=== PATIENT | male | born 1995 | race African-American/Black ===

== ENCOUNTER 2021-09-28 07:12 | Emergency (ER) | payer OTHER ==
[~2021-09-28] VITALS: Ht 160 cm; Wt 55.8 kg
[2021-09-28 08:29] LABS: BASO % 0.8 % (0.0-1.0); EOS # 0.1 10^3/uL (0.0-0.5); EOS % 1.1 % (0.0-3.0); HEMATOCRIT 43.6 % (42.0-52.0); HEMOGLOBIN 14.2 g/dl (13.5-17.5); LYMPH # 2.1 10^3/uL (1.5-5.0); LYMPH % 39.4 % (24.0-44.0); MEAN CORPUSCULAR HEMOGLOBIN 30.5 pg (27.0-33.0); MEAN CORPUSCULAR HGB CONC 32.6 g/dl (32.0-36.5); MEAN CORPUSCULAR VOLUME 93.8 fl (80.0-96.0); MONO # 0.5 10^3/uL (0.0-0.8); MONO % 9.3 % (2.0-8.0); NEUTROPHILS # 2.6 10^3/uL (1.5-8.5); PLATELET COUNT, AUTOMATED 235 10^3/uL (150-450); RED BLOOD COUNT 4.65 10^6/uL (4.30-6.10); WHITE BLOOD COUNT 5.3 10^3/uL (4.0-10.0)
[2021-09-28 08:47] LABS: ERYTHROCYTE SEDIMENTATION RATE 1 mm/hr (0-15)
[2021-09-28 09:32] LABS: BLOOD UREA NITROGEN 11 MG/DL (7-18); CARBON DIOXIDE LEVEL 31 MEQ/L (21-32); CHLORIDE LEVEL 106 MEQ/L (98-107); CREATININE FOR GFR 0.88 MG/DL (0.70-1.30); GLOMERULAR FILTRATION RATE > 60.0 (>60); GLUCOSE, FASTING 78 MG/DL (70-100); POTASSIUM SERUM 4.2 MEQ/L (3.5-5.1); SODIUM LEVEL 139 MEQ/L (136-145)
[2021-09-28 09:33] LABS: CALCIUM LEVEL 9.7 MG/DL (8.5-10.1); FREE THYROXINE INDEX 2.7 % (1.4-3.8); T UPTAKE 38 % (33-40); THYROXINE (T4) 7.1 UG/DL (4.5-12.0)
[2021-09-28 10:12] VITALS: BP 122/77
== END 2021-09-28 10:23 | disposition home or self-care (01) ==
LOC: M ED 07:12
DX: R68.83 Chills (without fever) (principal); R94.6 Abnormal results of thyroid function studies; M79.10 Myalgia, unspecified site

== ENCOUNTER 2022-01-31 06:50 | Emergency (ER) | payer OTHER ==
[~2022-01-31] VITALS: Ht 160 cm; Wt 56.3 kg
[2022-01-31 08:50] LABS: BASO # 0.1 10^3/uL (0.0-0.2); EOS # 0.1 10^3/uL (0.0-0.5); EOS % 1.2 % (0.0-3.0); HEMATOCRIT 44.5 % (42.0-52.0); HEMOGLOBIN 14.4 g/dl (13.5-17.5); LYMPH # 2.2 10^3/uL (1.5-5.0); MEAN CORPUSCULAR HEMOGLOBIN 30.5 pg (27.0-33.0); MEAN CORPUSCULAR HGB CONC 32.4 g/dl (32.0-36.5); MEAN CORPUSCULAR VOLUME 94.3 fl (80.0-96.0); MONO # 0.6 10^3/uL (0.0-0.8); MONO % 11.4 % (2.0-8.0); NEUTROPHILS # 2.2 10^3/uL (1.5-8.5); NEUTROPHILS % 43.2 % (36.0-66.0); PLATELET COUNT, AUTOMATED 252 10^3/uL (150-450); RED BLOOD COUNT 4.72 10^6/uL (4.30-6.10); WHITE BLOOD COUNT 5.2 10^3/uL (4.0-10.0)
[2022-01-31 09:28] LABS: CK-MB VALUE MASS 2.2 NG/ML (<3.6); MB/CK RELATIVE INDEX 0.28 (< OR =4)
[2022-01-31] MEDS ORDERED: NS 1,000 ML IV ONE (09:30)
[2022-01-31 09:42] LABS: BLOOD UREA NITROGEN 9 MG/DL (7-18); CALCIUM LEVEL 9.2 MG/DL (8.5-10.1); CARBON DIOXIDE LEVEL 27 MEQ/L (21-32); CHLORIDE LEVEL 106 MEQ/L (98-107); CREATININE FOR GFR 1.01 MG/DL (0.70-1.30); FREE T4 1.01 NG/DL (0.76-1.46); GLOMERULAR FILTRATION RATE > 60.0 (>60); GLUCOSE, FASTING 79 MG/DL (70-100); POTASSIUM SERUM 4.3 MEQ/L (3.5-5.1); SODIUM LEVEL 138 MEQ/L (136-145); THYROID STIMULATING HORMONE 0.655 uIU/ML (0.358-3.740)
[2022-01-31 10:19] LABS: CK-MB VALUE MASS 2.2 NG/ML (<3.6); MB/CK RELATIVE INDEX 0.29 (< OR =4)
[2022-01-31 11:02] VITALS: BP 131/88
== END 2022-01-31 11:30 | disposition home or self-care (01) ==
LOC: M ED 06:50
DX: R07.9 Chest pain, unspecified (principal); R00.1 Bradycardia, unspecified; F17.200 Nicotine dependence, unspecified, uncomplicated

== ENCOUNTER → 2022-03-31 | Outpatient (CLI) | payer OTHER | LOC: M CARPUL 13:00 | PROVIDERS: ATTEND Internal Medicine Cardiovascular Disease | DX: R07.2 Precordial pain (principal) ==

== ENCOUNTER → 2022-04-06 | Outpatient (CLI) | payer OTHER ==
[~2022-04-06] MED LIST: ISOVUE-370 76% 100ML VIAL As Ordered ONE
== END ==
LOC: M RAD 08:22
PROVIDERS: ATTEND Internal Medicine Cardiovascular Disease
DX: R07.2 Precordial pain (principal)
CPT/HCPCS: 71275; Q9967

== ENCOUNTER → 2022-09-27 | Outpatient (CLI) | payer OTHER ==
[2022-09-27 15:33] LABS: C REACTIVE PROTEIN QUANTITATIV < 0.40 MG/DL (<1.0)
[2022-09-27 15:36] LABS: TOTAL 25(OH) VITAMIN D 14.7 NG/ML (20.0-100.0)
== END ==
LOC: M LAB 14:21
PROVIDERS: ATTEND Internal Medicine Critical Care Medicine
DX: R07.9 Chest pain, unspecified (principal)

== ENCOUNTER → 2022-09-27 | Outpatient (CLI) | payer OTHER | LOC: M RAD 09:32 | PROVIDERS: ATTEND Internal Medicine Critical Care Medicine | DX: S22.21XA Fracture of manubrium, initial encounter for closed fracture (principal) | CPT/HCPCS: 36415; 78315; 82306; 85652; 86140; A9503 ==

== ENCOUNTER 2022-10-09 13:44 | Emergency (ER) | payer OTHER ==
[~2022-10-09] VITALS: Ht 160 cm; Wt 54.1 kg
[2022-10-09 15:22] LABS: BASO # 0.1 10^3/uL (0.0-0.2); BASO % 1.3 % (0.0-1.0); EOS # 0.1 10^3/uL (0.0-0.5); EOS % 1.4 % (0.0-3.0); HEMATOCRIT 41.2 % (42.0-52.0); HEMOGLOBIN 13.4 g/dl (13.5-17.5); LYMPH # 2.7 10^3/uL (1.5-5.0); LYMPH % 48.4 % (24.0-44.0); MEAN CORPUSCULAR HGB CONC 32.5 g/dl (32.0-36.5); MEAN CORPUSCULAR VOLUME 92.2 fl (80.0-96.0); MONO # 0.6 10^3/uL (0.0-0.8); NEUTROPHILS # 2.2 10^3/uL (1.5-8.5); NEUTROPHILS % 38.7 % (36.0-66.0); PLATELET COUNT, AUTOMATED 267 10^3/uL (150-450); RED BLOOD COUNT 4.47 10^6/uL (4.30-6.10); WHITE BLOOD COUNT 5.6 10^3/uL (4.0-10.0)
[2022-10-09 15:36] LABS: BLOOD UREA NITROGEN 13 MG/DL (9-23); CALCIUM LEVEL 9.1 MG/DL (8.5-10.1); CARBON DIOXIDE LEVEL 30 MMOL/L (20-31); CHLORIDE LEVEL 102 MMOL/L (98-107); CK-MB VALUE MASS < 1.0 NG/ML (<3.6); CPK CREATINE PHOSPHOKINASE 144 U/L (46-171); GLOMERULAR FILTRATION RATE > 60.0 (>60); GLUCOSE, FASTING 80 MG/DL (60-100); MB/CK RELATIVE INDEX 0.69 (< OR =4); POTASSIUM SERUM 3.9 MMOL/L (3.5-5.1); SODIUM LEVEL 135 MMOL/L (136-145)
[2022-10-09 18:01] LABS: CK-MB VALUE MASS < 1.0 NG/ML (<3.6); CPK CREATINE PHOSPHOKINASE 168 U/L (46-171); MB/CK RELATIVE INDEX 0.59 (< OR =4)
[2022-10-09 18:12] LABS: RSV AMPLIFICATION NEGATIVE (NEGATIVE)
[2022-10-09] MEDS ORDERED: IBUP-1022 PO (19:35)
[2022-10-09 19:55] VITALS: BP 154/91
== END 2022-10-09 19:58 | disposition home or self-care (01) ==
LOC: M ED 13:44
DX: R07.9 Chest pain, unspecified (principal); R00.1 Bradycardia, unspecified; Z79.1 Long term (current) use of non-steroidal anti-inflammatories (NSAID)

== ENCOUNTER → 2022-10-26 | Outpatient (CLI) | payer OTHER ==
[~2022-10-26] MED LIST changes: +IBUP-1022 PO; -ISOVUE-370 76% 100ML VIAL As Ordered ONE
== END ==
LOC: M EKG 11:01
PROVIDERS: ATTEND Internal Medicine Critical Care Medicine
DX: R07.9 Chest pain, unspecified (principal)

== ENCOUNTER → 2022-12-19 | Outpatient (CLI) | payer OTHER | LOC: M PLAIMG 09:05 | PROVIDERS: ATTEND Physician Assistant | DX: R07.2 Precordial pain (principal) ==

== ENCOUNTER 2023-01-02 09:11 | Emergency (ER) | payer OTHER ==
[~2023-01-02] VITALS: Ht 160 cm; Wt 51.6 kg
[2023-01-02 09:12] VITALS: BP 128/90; TEMP 98; O2SAT 100
[2023-01-02] MEDS ORDERED: METH4PACK (09:21)
[2023-01-02] MEDS ORDERED: HYDR-643 (09:21)
[2023-01-02] MEDS ORDERED: FLUT1BLS3 (09:21)
[2023-01-02] MEDS ORDERED: METH-1164 (09:21)
== END 2023-01-02 10:59 | disposition left against medical advice (07) ==
LOC: M ED 09:11
DX: Z53.21 Procedure and treatment not carried out due to patient leaving prior to being seen by health care provider (principal)

== ENCOUNTER 2023-01-02 12:51 | Emergency (ER) | payer OTHER ==
[~2023-01-02] VITALS: Ht 157.5 cm; Wt 50.6 kg
[2023-01-02 12:51] VITALS: BP 135/89; TEMP 97.8; O2SAT 100
[~2023-01-02 12:51] MED LIST changes: +FLUT1BLS3; +HYDR-643; +METH-1164; +METH4PACK
== END 2023-01-02 16:48 | disposition left against medical advice (07) ==
LOC: M ED 12:51
DX: Z53.21 Procedure and treatment not carried out due to patient leaving prior to being seen by health care provider (principal)

== ENCOUNTER 2023-04-07 02:54 | Emergency (ER) | payer OTHER ==
[~2023-04-07] VITALS: Ht 167.6 cm; Wt 62.0 kg
[2023-04-07] MEDS ORDERED: LORazepam 2 MG/ML 1ML VIAL IM STA (03:01)
[2023-04-07] MEDS ORDERED: HALOPERIDOL 5MG/ML 1ML VIAL IM ONE (03:05)
[2023-04-07] MEDS ORDERED: diphenhydrAMINE 50MG/ML VIAL IM ONE (03:05)
[2023-04-07 03:44] LABS: HEMATOCRIT 42.8 % (42.0-52.0); HEMOGLOBIN 13.4 g/dl (13.5-17.5); MEAN CORPUSCULAR HGB CONC 31.3 g/dl (32.0-36.5); MEAN CORPUSCULAR VOLUME 95.7 fl (80.0-96.0); PLATELET COUNT, AUTOMATED 284 10^3/uL (150-450); RED BLOOD COUNT 4.47 10^6/uL (4.30-6.10)
[2023-04-07] MEDS ORDERED: NS 1,000 ML IV ONE ×3 (04:10→07:05)
[2023-04-07 04:58] LABS: ALBUMIN 4.6 G/DL (3.2-5.2); ALKALINE PHOSPHATASE 59 U/L (46-116); ALT/SGPT 21 U/L (7.0-40); AST/SGOT 25 U/L (<34); BILIRUBIN,DIRECT < 0.1 MG/DL (<0.4); BILIRUBIN,TOTAL 0.2 MG/DL (0.3-1.2); BLOOD UREA NITROGEN 11 MG/DL (9-23); CARBON DIOXIDE LEVEL < 10.0 MMOL/L (20-31); CHLORIDE LEVEL 113 MMOL/L (98-107); CREATININE FOR GFR 0.92 MG/DL (0.70-1.30); ETHYL ALCOHOL (ETHANOL) 0.264 % (0.000-0.010); GLOMERULAR FILTRATION RATE > 60.0 (>60); GLUCOSE, FASTING 145 MG/DL (60-100); POTASSIUM SERUM 4.5 MMOL/L (3.5-5.1); SALICYLATE LEVEL < 3.0 MG/DL (<30); SODIUM LEVEL 149 MMOL/L (136-145); THYROID STIMULATING HORMONE 1.423 uIU/ML (0.55-4.78); TOTAL PROTEIN 8.1 G/DL (5.7-8.2)
[2023-04-07] MEDS ORDERED: ISOVUE-370 76% 100ML VIAL As Ordered ONE (05:00)
[2023-04-07] MEDS ORDERED: LIDOCAINE 2% 5ML JELLY UROJET TOP ONE (07:05)
[2023-04-07 07:40] LABS: ABG BASE EXCESS -5.1 (-2.0-2.0); ABG HCO3 20.9 MMOL/L (22.0-26.0); ABG O2 SATURATION 98.2 % (95.0-99.0); ABG PARTIAL PRESSURE CO2 42.3 mmHg (35.0-45.0); ABG PARTIAL PRESSURE O2 124.8 mmHg (75.0-100.0); ABG STANDARD HCO3 20.3 MMOL/L. (22.0-26.0); ABG TOTAL CO2 22.2 MMOL/L (22.0-29.0); ABG pH (ARTERIAL) 7.311 UNITS (7.350-7.450)
[2023-04-07] MEDS ORDERED: diphenhydrAMINE 50MG/ML VIAL IV STA (07:56)
[2023-04-07 08:12] LABS: BLOOD UREA NITROGEN 8 MG/DL (9-23); CALCIUM LEVEL 7.3 MG/DL (8.5-10.1); CARBON DIOXIDE LEVEL 25 MMOL/L (20-31); CHLORIDE LEVEL 116 MMOL/L (98-107); CREATININE FOR GFR 0.78 MG/DL (0.70-1.30); GLOMERULAR FILTRATION RATE > 60.0 (>60); GLUCOSE, FASTING 87 MG/DL (60-100); SODIUM LEVEL 148 MMOL/L (136-145)
[2023-04-07 10:26] LABS: AMPHETAMINES LEVEL URINE NEGATIVE (NEGATIVE); BARBITURATES URINE NEGATIVE (NEGATIVE); BENZODIAZEPINES URINE NEGATIVE (NEGATIVE); CANNABINOIDS URINE NEGATIVE (NEGATIVE); COCAINE METABOLITE URINE NEGATIVE (NEGATIVE); METHADONE URINE NEGATIVE (NEGATIVE); OPIATES URINE NEGATIVE (NEGATIVE); PHENCYCLIDINE URINE NEGATIVE (NEGATIVE)
[2023-04-07 13:58] VITALS: BP 145/90; TEMP 98.2; O2SAT 100
== END 2023-04-07 14:01 | disposition home or self-care (01) ==
LOC: M ED 02:54
DX: F10.129 Alcohol abuse with intoxication, unspecified (principal); V49.00XA Driver injured in collision with unspecified motor vehicles in nontraffic accident, initial encounter; Z79.52 Long term (current) use of systemic steroids; Z79.1 Long term (current) use of non-steroidal anti-inflammatories (NSAID); Z79.899 Other long term (current) drug therapy
CPT/HCPCS: 36600; 70450; 71260; 72125; 72170; 74176; 80047; 80048; 80076; 80143; 80307; 82077; 82803; 83605; 84443; 85027; 86850; 86900; 86901; 87635; 96361; 96372; 99285; J1200; J1630; J2060; Q9967

== ENCOUNTER 2023-04-09 16:32 | Inpatient (IN) | payer OTHER ==
[~2023-04-09] VITALS: Ht 160 cm; Wt 52.3 kg
[2023-04-09] MEDS ORDERED: DIVA1TAB48 PO (17:14)
[2023-04-09] MEDS ORDERED: MIRT1TAB (17:14)
[2023-04-09] MEDS ORDERED: DULO1CAP4 (17:14)
[2023-04-09 18:09] LABS: HEMATOCRIT 38.3 % (42.0-52.0); HEMOGLOBIN 12.7 g/dl (13.5-17.5); MEAN CORPUSCULAR HEMOGLOBIN 30.3 pg (27.0-33.0); MEAN CORPUSCULAR HGB CONC 33.2 g/dl (32.0-36.5); MEAN CORPUSCULAR VOLUME 91.4 fl (80.0-96.0); PLATELET COUNT, AUTOMATED 253 10^3/uL (150-450); RED BLOOD COUNT 4.19 10^6/uL (4.30-6.10); WHITE BLOOD COUNT 4.5 10^3/uL (4.0-10.0)
[2023-04-09 18:39] LABS: ETHYL ALCOHOL (ETHANOL) < 0.003 % (0.000-0.010)
[2023-04-09 18:40] LABS: SALICYLATE LEVEL < 3.0 MG/DL (<30)
[2023-04-09 18:42] LABS: THYROID STIMULATING HORMONE 0.822 uIU/ML (0.55-4.78)
[2023-04-09 18:49] LABS: AMPHETAMINES LEVEL URINE NEGATIVE (NEGATIVE); BARBITURATES URINE NEGATIVE (NEGATIVE); BENZODIAZEPINES URINE NEGATIVE (NEGATIVE); CANNABINOIDS URINE NEGATIVE (NEGATIVE); COCAINE METABOLITE URINE NEGATIVE (NEGATIVE); METHADONE URINE NEGATIVE (NEGATIVE); OPIATES URINE NEGATIVE (NEGATIVE); PHENCYCLIDINE URINE NEGATIVE (NEGATIVE)
[2023-04-09 18:51] LABS: ALKALINE PHOSPHATASE 55 U/L (46-116); ALT/SGPT 26 U/L (7.0-40); AST/SGOT 46 U/L (<34); BILIRUBIN,DIRECT 0.2 MG/DL (<0.4); BILIRUBIN,TOTAL 0.4 MG/DL (0.3-1.2); BLOOD UREA NITROGEN 7 MG/DL (9-23); CARBON DIOXIDE LEVEL 28 MMOL/L (20-31); CHLORIDE LEVEL 106 MMOL/L (98-107); CREATININE FOR GFR 0.73 MG/DL (0.70-1.30); GLOMERULAR FILTRATION RATE > 60.0 (>60); GLUCOSE, FASTING 92 MG/DL (60-100); POTASSIUM SERUM 4.2 MMOL/L (3.5-5.1); SODIUM LEVEL 141 MMOL/L (136-145); TOTAL PROTEIN 7.3 G/DL (5.7-8.2)
[2023-04-09] MEDS ORDERED: traZODone 50 MG TAB PO PRN (20:50)
[2023-04-09] MEDS ORDERED: MOM 30ML SUSPENSION UDC PO PRN (20:50)
[2023-04-09] MEDS ORDERED: MAALOX 30 ML SUSP *UDC PO PRN (20:50)
[2023-04-09] MEDS ORDERED: ACETAMINOPHEN TAB 650MG DOSE (2X325MG) PO PRN (20:50)
[2023-04-09] MEDS ORDERED: ALBU8.5H INH (21:30)
[2023-04-09] MEDS ORDERED: HOME MED LIST COMPLETE! XX SCH (21:30)
[2023-04-09] MEDS ORDERED: HYDR-3363 PO (21:30)
[2023-04-09] MEDS ORDERED: DULO1CAP4 PO (21:30)
[2023-04-09] MEDS ORDERED: IBUP1TAB6 PO (21:30)
[2023-04-09] MEDS ORDERED: SYMB16INH INH (21:30)
[2023-04-09] MEDS ORDERED: MIRT1TAB PO (21:30)
[2023-04-09 23:35] VITALS: BP 152/90; TEMP 97.7; O2SAT 96
[2023-04-10 06:37] VITALS: BP 132/74; TEMP 98.4; O2SAT 98
[2023-04-10] MEDS ORDERED: ALBUTEROL 90 MCG/ACT 8GM HFA INHALER INH PRN (10:00)
[2023-04-10] MEDS: SYMBICORT 160/4.5MCG INHALER 6GM INH SCH ×2 (10:20→20:44)
[2023-04-10] MEDS: DULoxetine 30MG CAPSULE (CYMBALTA) PO SCH (10:20)
[2023-04-10 16:20] VITALS: BP 137/85; TEMP 99; O2SAT 99
[2023-04-10] MEDS: MIRTAZAPINE 7.5MG PER 1/2 TABLET PO SCH (20:44)
[2023-04-10] MEDS: ARIPiprazole 2 MG TAB PO SCH (20:44)
[2023-04-11 06:18] VITALS: BP 132/69; TEMP 97.6; O2SAT 98
[2023-04-11 06:46] LABS: CHOLESTEROL RISK RATIO 2.76 (<5); HDL CHOLESTEROL 57.1 MG/DL (>40); LDL CHOLESTEROL 90.3 MG/DL (<100); NON-HDL-C 100.9 MG/DL
[2023-04-11] MEDS: SYMBICORT 160/4.5MCG INHALER 6GM INH SCH ×2 (09:16→20:22)
[2023-04-11] MEDS: DULoxetine 30MG CAPSULE (CYMBALTA) PO SCH (09:16)
[2023-04-11 17:55] VITALS: BP 136/91; TEMP 98.8; O2SAT 99
[2023-04-11] MEDS: ARIPiprazole 2 MG TAB PO SCH (20:22)
[2023-04-11] MEDS: MIRTAZAPINE 7.5MG PER 1/2 TABLET PO SCH (20:22)
[2023-04-12 06:50] VITALS: BP 107/64; TEMP 98.5; O2SAT 99
[2023-04-12] MEDS: DULoxetine 30MG CAPSULE (CYMBALTA) PO SCH (08:51)
[2023-04-12] MEDS: SYMBICORT 160/4.5MCG INHALER 6GM INH SCH ×2 (08:51→20:14)
[2023-04-12] MEDS: IBUPROFEN 400MG TAB PO PRN (12:20)
[2023-04-12 18:26] VITALS: BP 139/95; TEMP 98.2; O2SAT 100
[2023-04-12] MEDS: MIRTAZAPINE 7.5MG PER 1/2 TABLET PO SCH (20:14)
[2023-04-12] MEDS: ARIPiprazole 2 MG TAB PO SCH (20:14)
[2023-04-13 06:31] VITALS: BP 136/81; TEMP 99.1; O2SAT 100
[2023-04-13] MEDS: SYMBICORT 160/4.5MCG INHALER 6GM INH SCH ×2 (07:58→20:06)
[2023-04-13] MEDS: DULoxetine 30MG CAPSULE (CYMBALTA) PO SCH (08:00)
[2023-04-13] MEDS ORDERED: VITAMIN D 50,000 UNITS CAPSULE (ERGOCALCIFEROL 1.25MG) PO SCH (09:00)
[2023-04-13 17:40] VITALS: BP 133/89; TEMP 98; O2SAT 100
[2023-04-13] MEDS: ARIPiprazole 2 MG TAB PO SCH (20:06)
[2023-04-13] MEDS: MIRTAZAPINE 7.5MG PER 1/2 TABLET PO SCH (20:06)
[2023-04-14 06:32] VITALS: BP 122/74; TEMP 98.9; O2SAT 100
[2023-04-14] MEDS: DULoxetine 30MG CAPSULE (CYMBALTA) PO SCH (09:14)
[2023-04-14] MEDS: SYMBICORT 160/4.5MCG INHALER 6GM INH SCH ×2 (09:14→20:28)
[2023-04-14] MEDS: IBUPROFEN 400MG TAB PO PRN (09:15)
[2023-04-14 18:14] VITALS: BP 144/82; TEMP 98.1; O2SAT 100
[2023-04-14] MEDS: MIRTAZAPINE 7.5MG PER 1/2 TABLET PO SCH (20:29)
[2023-04-14] MEDS: ARIPiprazole 2 MG TAB PO SCH (20:29)
[2023-04-15 06:41] VITALS: BP 107/60; TEMP 98.5; O2SAT 98
[2023-04-15] MEDS: SYMBICORT 160/4.5MCG INHALER 6GM INH SCH ×2 (07:43→20:12)
[2023-04-15] MEDS: DULoxetine 30MG CAPSULE (CYMBALTA) PO SCH (09:45)
[2023-04-15] MEDS: diphenhydrAMINE 25MG CAP PO PRN (13:03)
[2023-04-15 18:19] VITALS: BP 147/97; TEMP 98.7; O2SAT 100
[2023-04-15 18:26] VITALS: BP 132/92
[2023-04-15] MEDS: ARIPiprazole 2 MG TAB PO SCH (20:11)
[2023-04-15] MEDS: MIRTAZAPINE 7.5MG PER 1/2 TABLET PO SCH (20:12)
[2023-04-16 06:27] VITALS: BP 136/90; TEMP 98.8; O2SAT 99
[2023-04-16] MEDS: DULoxetine 30MG CAPSULE (CYMBALTA) PO SCH (09:13)
[2023-04-16] MEDS: SYMBICORT 160/4.5MCG INHALER 6GM INH SCH ×2 (09:13→20:14)
[2023-04-16] MEDS: diphenhydrAMINE 25MG CAP PO PRN (11:13)
[2023-04-16 18:31] VITALS: BP 136/85; TEMP 98.4; O2SAT 100
[2023-04-16] MEDS: MIRTAZAPINE 7.5MG PER 1/2 TABLET PO SCH (20:14)
[2023-04-16] MEDS: ARIPiprazole 2 MG TAB PO SCH (20:14)
[2023-04-17 06:47] VITALS: BP 142/87; TEMP 98.8; O2SAT 99
[2023-04-17] MEDS: SYMBICORT 160/4.5MCG INHALER 6GM INH SCH (08:26)
[2023-04-17] MEDS: DULoxetine 30MG CAPSULE (CYMBALTA) PO SCH (08:27)
[2023-04-17] MEDS ORDERED: TRAZ-252 PO (10:13)
[2023-04-17] MEDS ORDERED: DULO1CAP6 PO (10:13)
[2023-04-17] MEDS ORDERED: MIRT1TAB PO (10:13)
[2023-04-17] MEDS ORDERED: ABIL1TAB13 PO (10:13)
[2023-04-17] MEDS ORDERED: DIPH-435 PO (10:13)
== END 2023-04-17 12:00 | disposition home or self-care (01) | DRG 885 ==
LOC: M ED 16:32 → M ED INP 20:50 → M PSY 23:02
PROVIDERS: ADMIT Student in an Organized Health Care Education/Training Program; ATTEND Student in an Organized Health Care Education/Training Program
DX: F33.1 Major depressive disorder, recurrent, moderate (principal); R45.851 Suicidal ideations; F10.90 Alcohol use, unspecified, uncomplicated; J45.909 Unspecified asthma, uncomplicated; R07.89 Other chest pain; G47.00 Insomnia, unspecified; Z79.899 Other long term (current) drug therapy; Z20.822 Contact with and (suspected) exposure to COVID-19

== ENCOUNTER 2023-08-29 14:40 | Emergency (ER) | payer OTHER ==
[~2023-08-29] VITALS: Ht 160 cm; Wt 54.5 kg
[~2023-08-29 14:40] MED LIST changes: +ABIL1TAB13 PO; +ALBU8.5H INH; +DIPH-435 PO; +DIVA1TAB48 PO; +DULO1CAP4; +DULO1CAP4 PO; +DULO1CAP6 PO; +HYDR-3363 PO; +IBUP1TAB6 PO; +MIRT1TAB; +MIRT1TAB PO; +SYMB16INH INH; +TRAZ-252 PO
[2023-08-29 18:07] LABS: BASO % 0.6 % (0.0-1.0); EOS % 0.3 % (0.0-3.0); HEMATOCRIT 44.5 % (42.0-52.0); HEMOGLOBIN 14.5 g/dl (13.5-17.5); LYMPH # 1.4 10^3/uL (1.5-5.0); LYMPH % 21.9 % (24.0-44.0); MEAN CORPUSCULAR HEMOGLOBIN 30.1 pg (27.0-33.0); MEAN CORPUSCULAR HGB CONC 32.6 g/dl (32.0-36.5); MEAN CORPUSCULAR VOLUME 92.3 fl (80.0-96.0); MONO # 0.2 10^3/uL (0.0-0.8); MONO % 3.7 % (2.0-8.0); NEUTROPHILS # 4.8 10^3/uL (1.5-8.5); NEUTROPHILS % 73.3 % (36.0-66.0); PLATELET COUNT, AUTOMATED 274 10^3/uL (150-450); RED BLOOD COUNT 4.82 10^6/uL (4.30-6.10); WHITE BLOOD COUNT 6.5 10^3/uL (4.0-10.0)
[2023-08-29 18:13] LABS: ERYTHROCYTE SEDIMENTATION RATE 10 mm/hr (0-15)
[2023-08-29 18:30] LABS: BLOOD UREA NITROGEN 8 MG/DL (9-23); CARBON DIOXIDE LEVEL 28 MMOL/L (20-31); CHLORIDE LEVEL 103 MMOL/L (98-107); CREATININE FOR GFR 0.85 MG/DL (0.70-1.30); GLOMERULAR FILTRATION RATE > 60.0 (>60); GLUCOSE, FASTING 85 MG/DL (60-100); POTASSIUM SERUM 4.4 MMOL/L (3.5-5.1); SODIUM LEVEL 137 MMOL/L (136-145)
[2023-08-29] MEDS: KETOROLAC TROMETHAMINE 10 MG TAB PO ONE (18:53)
[2023-08-29 19:36] VITALS: BP 142/94; TEMP 97.1; O2SAT 100
== END 2023-08-29 19:44 | disposition home or self-care (01) ==
LOC: M ED 14:40
DX: R07.9 Chest pain, unspecified (principal); R00.1 Bradycardia, unspecified; I45.10 Unspecified right bundle-branch block; I10 Essential (primary) hypertension; J45.909 Unspecified asthma, uncomplicated; F32.A Depression, unspecified; F10.10 Alcohol abuse, uncomplicated; Z79.52 Long term (current) use of systemic steroids; Z79.899 Other long term (current) drug therapy